=== PATIENT | male | born 1990 | race Caucasian/White ===

== ENCOUNTER 2020-02-22 11:27 | Emergency (ER) | payer SELFPAY ==
[~2020-02-22] VITALS: Ht 172.7 cm; Wt 73.0 kg
[2020-02-22] MEDS ORDERED: IBUPROFEN 600MG TABLET PO ONE (12:00)
[2020-02-22 12:06] VITALS: BP 131/83
== END 2020-02-22 12:50 | disposition home or self-care (01) ==
LOC: ER 11:27
DX: K08.89 Other specified disorders of teeth and supporting structures (principal); R03.0 Elevated blood-pressure reading, without diagnosis of hypertension
CPT/HCPCS: 99282